=== PATIENT | female | born 1980 | race African-American/Black ===

== ENCOUNTER 2017-08-25 21:41 | Emergency (ER) | payer MEDICAID ==
[~2017-08-25] VITALS: Ht 165.1 cm; Wt 63.0 kg
[2017-08-25 21:57] VITALS: BP 122/70
== END 2017-08-25 23:35 | disposition left against medical advice (07) ==
LOC: ER 21:41
DX: Z53.21 Procedure and treatment not carried out due to patient leaving prior to being seen by health care provider (principal)